=== PATIENT | male | born 1955 | race Caucasian/White ===

== ENCOUNTER 2025-07-07 21:25 | Emergency (ER) | payer OTHER ==
[2025-07-07 22:17] VITALS: BP 147/85
[2025-07-07] MEDS: Ketorolac 30 MG/ML SDV IM ONE (23:36)
[2025-07-08 00:38] VITALS: PULSE 72
== END 2025-07-08 00:37 | disposition home or self-care (01) ==
LOC: MW.ED 21:25
DX: S92.002A Unspecified fracture of left calcaneus, initial encounter for closed fracture (principal); E78.00 Pure hypercholesterolemia, unspecified; Z79.82 Long term (current) use of aspirin; Z79.899 Other long term (current) drug therapy; W01.0XXA Fall on same level from slipping, tripping and stumbling without subsequent striking against object, initial encounter
CPT/HCPCS: 73590; 73630; 73650; 96372; 99283; J1885; 99282